=== PATIENT | female | born 1975 | race Caucasian/White ===

== ENCOUNTER 2016-09-03 00:37 | Emergency (ER) ==
[2016-09-03] MEDS ORDERED: NORCO-7.5 PO ONE (01:08)
[2016-09-03] MEDS ORDERED: ZOFRAN ODT PO ONE (01:08)
--- NOTE | 2016-09-03 01:09 | PROVIDER DOCUMENTATION ---
HPI-Abdominal Pain/GI Problem - General Chief Complaint: Flank Pain Stated Complaint: HIGH BP Time Seen by Provider: 09/03/16 00:58 Source: patient Allergies/Adverse Reactions: Patient Allergies Allergy/AdvReac Type Severity Reaction Status Date / Time Penicillins Allergy Severe kidney Verified 09/03/16 00:54 function decreased, edema Home Medications: Pantoprazole [Protonix] 40 mg PO DAILY 03/08/15 Hydrocodone/Acetaminophen [Holley 7.5-325 Tablet] 1 tab PO TID 12/23/15 Lisinopril 10 mg PO DAILY 09/03/16 - History of Present Illness-ABD Nature of Presenting Problems: 41 year old WF presents with c/o LUQ/LLQ and left flank pain, 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 she was instructed to follow up with Dr. Pereira but has been unable due to money. pt denies any new symptoms with this episode. Abdominal Pain Onset Location: reports: LUQ, LLQ, flank Review of Systems - Adult - REVIEW OF SYSTEMS - ADULT Constitutional: reports: no symptoms reported. denies: chills, fever Eyes: reports: no symptoms reported. denies: discharge, blurred vision, double vision Ears, Nose, Mouth & Throat: reports: no symptoms reported. denies: ear discharge, ear pain, nose pain, loose teeth, throat pain, throat swelling Cardiovascular: reports: no symptoms reported. denies: chest pain, palpitations Respiratory: reports: no symptoms reported. denies: chronic cough, cough, shortness of breath, wheezing Gastrointestinal: reports: see HPI, abdominal pain. denies: hematemesis, constipation, diarrhea, difficulty swallowing, frequent heartburn, nausea, poor appetite, rectal bleeding, vomiting Genitourinary: reports: see HPI, flank pain (left). denies: dysuria, hematuria , urgency Musculoskeletal: reports: no symptoms reported. denies: bone pain, joint pain, joint swelling, neck pain Integumentary: reports: no symptoms reported. denies: hives, mole changes, skin sores/ulcer Neurological: reports: no symptoms reported. denies: ataxia, paresthesia, tremors Psychiatric: reports: no symptoms reported Endocrine: reports: no symptoms reported Hematologic/Lymphatic: reports: no symptoms reported Allergic/Immunologic: reports: no symptoms reported All Other Systems: Reviewed and Negative Past History - Adult - PAST MEDICAL HISTORY-ADULT Review of Records: reports: Old Records Reviewed, Nursing Assessment Review, Medications Reviewed, Social history reviewed & non-contributory. Major Childhood Illnesses: reports: denies history Cardiovascular: reports: HTN Respiratory: reports: bronchitis Gastrointestinal: reports: denies history Obstetrical/Gynecological: reports: denies history Genitourinary: reports: other (pt reports she has a blockage in her left ureter , unknown cause) Musculoskeletal: reports: chronic pain, intervertebral disc disease Neurological: reports: headaches/migraines, Seizures/Epilepsy Psychiatric: reports: anxiety, other (insomnia) Endocrine/Immune: reports: denies history Other Conditions: reports: denies history - PRIOR SURGERIES/PROCEDURES Surgical/Procedure History: reports: hysterectomy, other (sling repair, oral surgery) - PRIOR HOSPITALIZATIONS Prior Hospitalizations: reports: for other non-related - IMMUNIZATION STATUS Childhood Immunizations: See Nurse Assessment Flu Vaccine: See Nurse Assessment - FAMILY HISTORY Family History: reviewed, not pertinent - SOCIAL HISTORY Smoking: cigarettes Provider spent 3-5 mins advising pt. on dangers of tobacco.: Discussed manners to quit use, and f/u contacts for add'l counseling. Substance Use: none/never Alcohol Use Frequency: never Physical Exam-General - PHYSICAL EXAM-ADULT Initial Vital Signs Reviewed: Yes - CONSTITUTIONAL General Appearance: appears well, alert, no apparent distress - EYES Eyes: pink conjunctivae - HEAD, EARS, NOSE, MOUTH & THROAT HENMT: normocephalic/atraumatic, moist mucous membranes, normal ENT inspection - NECK Neck: non-tender, full range of motion, supple, normal inspection - RESPIRATORY Respiratory: chest non-tender, lungs clear, normal breath sounds - CARDIOVASCULAR Cardiovascular: normal peripheral pulses, regular rate, rhythm, no edema - GASTROINTESTINAL (ABDOMEN) Abdominal Exam: normal bowel sounds, soft, tenderness (LLQ/LUQ). negative: non tender, distended, guarding, rigid, rebound, McBurney's point tenderness, Abbott 's sign, obturator sign, psoas, Rovsing's sign - GENITOURINARY Female Genitalia/Pelvic Exam: deferred - LYMPHATIC Lymphatic: no adenopathy - MUSCULOSKELETAL Back Exam: normal inspection, no vertebral tenderness, CVA tenderness (left). negative: no CVA tenderness, decreased range of motion, swelling, vertebral tenderness Extremity: normal range of motion, non-tender, normal gait, normal inspection, no pedal edema, no calf tenderness, normal capillary refill Peripheral Pulses: radial (R): 3+, radial (L): 3+, dorsalis-pedis (R): 3+, dorsalis-pedis (L): 3+ - SKIN Integumentary: normal color, normal turgor, warm/dry - NEUROLOGIC Neurologic: grossly normal, no motor/sensory deficits - PSYCHIATRIC Psych/Mental Status: normal mood/affect, normal thought content, normal thought process, oriented x 3 Progress - PLAN OF CARE/RESULTS Progress/Plan/Lab Results: Laboratory Tests 09/03/16 01:05 Urine Source CLEAN CATCH Urine Color YELLOW Urine Clarity CLEAR Urine pH 6.5 Ur Specific Dillon 1.015 Urine Protein NEGATIVE Urine Ketones NEGATIVE Urine Blood 1+ A Urine Nitrite NEGATIVE Urine Bilirubin NEGATIVE Urine Urobilinogen NORMAL Urine Microscopic RBC <10 Urine WBC NEGATIVE Urine Microscopic WBC <10 Ur Epithelial Cells >10 A Urine Bacteria 2+ Urine Glucose NEGATIVE Orders Category Date Time Status URINALYSIS PL W/POSS RFLX CULT [URINALYSIS] Stat Lab 09/03/16 01:05 Completed URINE CULTURE [RM] Routine Lab 09/03/16 01:43 Ordered Clonidine [Catapres] Med 09/03/16 02:10 Discontinued 0.1 mg PO NOW ONE Hydrocodone/APAP 7.5 mg/325 mg [Holley-7.5] Med 09/03/16 01:08 Discontinued 1 each PO NOW ONE Ondansetron Odt [Zofran Odt] Med 09/03/16 01:08 Discontinued 4 mg PO NOW ONE Vital Signs - 24 hr 09/03/16 09/03/16 00:46 02:12 Temperature 98.2 F 98.7 F Pulse Rate 87 77 Respiratory 18 20 Rate Blood Pressure 148/112 172/108 O2 Sat by Pulse 100 97 Oximetry Departure - Departure Time of Disposition Order: 02:06 DIAGNOSIS: Left flank pain, chronic Disposition: HOME 01 Certified Medical Emergency: Emergent Condition: Stable Additional Instructions: Follow up with Dr. Pereira. ED Follow Up Instructions: You have been treated by a care provider in the Emergency Department. These instructions are being provided to you so you can have an understanding of how to care for yourself upon discharge. Upon discharge from the Emergency Department, you are responsible for making arrangements for follow-up care by a physician of your choice. Take all prescribed medications as directed. Return to the Emergency Department immediately for any new or worsening symptoms. You may call the Physician Referral phone number at [phone] to obtain a list of Physicians who are taking new patients. Prescriptions: Cyclobenzaprine [Flexeril] 10 mg PO TID #7 tablet Promethazine [Phenergan] 25 mg PO Q6H PRN PRN #20 tablet PRN Reason: Nausea Promethazine [Phenergan] 25 mg FL Q6H PRN PRN #14 supp PRN Reason: Nausea Referrals: Samira Tapia MD [STAFF PHYSICIAN] - Ryne Pereira MD [STAFF PHYSICIAN] - Forms: Return to School/Parent Work Instructions: Cyclobenzaprine tablets, Promethazine suppositories, Promethazine tablets, Flank Pain, [id number] Attestation - Physician/ Mid-level Attestation Patient care was provided by Mid-level provider (ASSISTANT OFFICE MANAGER/PA):: Yes Mid-level provider:: Aydee Milner Mid-level documentation review:: The Mid-level provider documentation, treatment plan and medical decision making was reviewed by the physician who agrees with all treatment and medical decision making by the P.
[2016-09-03 01:16] LABS: URINE SOURCE CLEAN CATCH
[2016-09-03 01:26] LABS: BILIRUBIN URINE NEGATIVE (NEGATIVE); BLOOD URINE 1+ (NEGATIVE); CLARITY CLEAR (CLEAR); COLOR YELLOW; GLUCOSE URINE NEGATIVE (NEGATIVE); LEUKOCYTES URINE NEGATIVE (NEGATIVE); NITRITE URINE NEGATIVE (NEGATIVE); PH URINE 6.5; PROTEIN URINE NEGATIVE (NEGATIVE); SP GRAVITY URINE 1.015; UROBILINOGEN URINE NORMAL
[2016-09-03 01:43] LABS: URINE CULTURE PL NEEDED? YES; URINE EPITHELIAL CELLS >10 /HPF (<10); URINE RBC <10 /HPF (<10); URINE WBC <10 /HPF (<10)
[2016-09-03] MEDS ORDERED: CATAPRES PO ONE (02:10)
[2016-09-03 02:13] VITALS: BP 172/108
== END 2016-09-03 02:23 | disposition home or self-care (01) ==
LOC: P.ED 00:37
DX: G89.29 Other chronic pain (principal); R10.12 Left upper quadrant pain; R10.32 Left lower quadrant pain; I10 Essential (primary) hypertension; N13.5 Crossing vessel and stricture of ureter without hydronephrosis; F17.210 Nicotine dependence, cigarettes, uncomplicated; Z79.899 Other long term (current) drug therapy; Z79.891 Long term (current) use of opiate analgesic; Z71.6 Tobacco abuse counseling
CPT/HCPCS: 81001; 87088; 99283